=== PATIENT | male | born 1950 | race Caucasian/White ===

== ENCOUNTER 2020-08-11 10:14 | Emergency (ER) | payer BC, OTHER ==
[~2020-08-11] VITALS: Ht 170.2 cm; Wt 65.8 kg
--- NOTE | 2020-08-11 10:25 | NUR ---
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 PATIENT A/OX3, BREATHING EVEN AND UNLABORED, PT STS C/O TOO MUCH PAIN ON LEFT THIGH TO HIP.
[2020-08-11] MEDS ORDERED: MORPHINE SULFATE INJ 2 MG/ML DISP.SYRIN ONE (11:47)
[2020-08-11] MEDS ORDERED: ONDANSETRON HCL/PF 4 MG/2 ML VIAL ONE (11:47)
--- NOTE | 2020-08-11 11:50 | NUR ---
XRAY RESULTED, DR. GLEZ GAVE INSTRUCTIONS TO HAVE THE PATIENT WALK. BUT WHEN PATIENT MOVED THE LEFT HIP, HE SCREAMED IN PAIN. PATIENT UNABLE TO SIT UP OR MOVE THE HIP.
[2020-08-11] MEDS ORDERED: ONDANSETRON HCL/PF 4 MG/2 ML VIAL IV ONE (12:00)
[2020-08-11] MEDS ORDERED: MORPHINE SULFATE INJ 2 MG/ML DISP.SYRIN IV ONE (12:00)
--- NOTE | 2020-08-11 12:00 | NUR ---
PATIENT STS HE HAD THE SURGERY AT [facility].
--- NOTE | 2020-08-11 12:06 | NUR ---
CELLULOID TRIMMER AT BEDSIDE. PATIENT CHANGED INTO A GOWN.
[2020-08-11] MEDS ORDERED: GLIP5TAB13 PO (12:13)
[2020-08-11] MEDS ORDERED: SERT-437 PO (12:13)
[2020-08-11] MEDS ORDERED: SIMV-49 PO (12:13)
[2020-08-11] MEDS ORDERED: ATEN25TA PO (12:13)
[2020-08-11] MEDS ORDERED: FAMO20TA8 PO (12:13)
[2020-08-11] MEDS ORDERED: DOCU-270 PO (12:13)
[2020-08-11] MEDS ORDERED: NPH,100I SQ (12:13)
[2020-08-11] MEDS ORDERED: METF-440 PO (12:18)
[2020-08-11 12:22] LABS: BASOPHILS # (AUTO) 0.1 /CMM (0.0-0.2); BASOPHILS % (AUTO) 0.5 % (0.0-2.0); HEMATOCRIT 39 % (39-51); HEMOGLOBIN 12.8 g/dL (13.5-17.5); LYMPHOCYTES # (AUTO) 2.3 /CMM (0.8-4.8); LYMPHOCYTES % (AUTO) 20.8 % (20.0-44.0); MEAN CORPUSCULAR HGB CONC 33 g/dl (31.0-36.0); MEAN CORPUSCULAR VOLUME 89 fL (80-96); MONOCYTES # (AUTO) 1.1 /CMM (0.1-1.30); MONOCYTES % (AUTO) 9.8 % (2.0-12.0); NEUTROPHILS # (AUTO) 7.4 /CMM (1.8-8.9); NEUTROPHILS % (AUTO) 65.9 % (43.0-81.0); PLATELET COUNT (AUTO) 307 /CMM (150-450); RED BLOOD CELL COUNT(AUTO) 4.41 MIL/uL (4.5-6.0); WHITE BLOOD COUNT (AUTO) 11.3 K/uL (4.3-11.0)
--- NOTE | 2020-08-11 12:24 | NUR ---
COVID SWAB SENT TO LAB.
[2020-08-11 12:33] LABS: CALCIUM, SERUM 9.7 mg/dL (8.5-10.1); CREATININE 1.2 mg/dL (0.6-1.3); POTASSIUM 4.7 mmol/L (3.5-5.1)
[2020-08-11 12:38] LABS: ALBUMIN 3.7 g/dL (3.4-5.0); BILIRUBIN,TOTAL 0.3 mg/dL (0.2-1.0); TOTAL PROTEIN, SERUM 7.6 g/dL (6.4-8.2)
--- NOTE | 2020-08-11 12:43 | NUR ---
CALLED [facility], WAITING FOR CALLBACK.
--- NOTE | 2020-08-11 13:13 | NUR ---
CALLED ERIC FROM THE [facility] FOR PAMELA WEISS.
[2020-08-11] MEDS ORDERED: ACET-907 PO (13:17)
--- NOTE | 2020-08-11 13:25 | NUR ---
RECEIVED RESULT FROM MAIN LAB: RAPID COVID NEGATIVE
--- NOTE | 2020-08-11 13:32 | NUR ---
CALLED [facility] FOR TRANSPORT BACK [facility] WILL CALL US BACK WITH INFO. XIOMARA [phone]
--- NOTE | 2020-08-11 14:06 | NUR ---
KASSIE CALLED DR. COPELAND SPEAKING WITH DR. GLEZ REF # [id number] OK TO GO BACK TO [facility].
--- NOTE | 2020-08-11 14:36 | NUR ---
KASSIE CALLED [facility] [id number] BY NITHIN OLMEDO.
--- NOTE | 2020-08-11 14:45 | NUR ---
PATIENT A/OX4, BREATHING EVEN AND UNLABORED, NO SOB NOTED. RESTING.
--- NOTE | 2020-08-11 14:57 | NUR ---
REPORT GIVEN TO SAMARA VIRGEN.
--- NOTE | 2020-08-11 15:46 | NUR ---
PATIENT A/OX3-4, BREATHING EVEN AND UNLABORED, NO SOB NOTED. PATIENT KEPT COMFORTABLE. REPORT GIVEN TO LAB SUPPORT SERVICE TECH. PAPERWORK PROVIDED WITH COPIES OF XRAY. IV removed. Catheter intact and site benign. Pressure and 4x4 applied to site. No bleeding noted. Patient discharged to facility in stable condition. Written and verbal after care instructions given. Patient verbalizes understanding of instruction.
[2020-08-11 15:48] VITALS: BP 113/65
== END 2020-08-11 15:49 ==
LOC: ER 10:27
DX: S70.02XA Contusion of left hip, initial encounter (principal); W01.0XXA Fall on same level from slipping, tripping and stumbling without subsequent striking against object, initial encounter; Y92.099 Unspecified place in other non-institutional residence as the place of occurrence of the external cause; I10 Essential (primary) hypertension; Z86.73 Personal history of transient ischemic attack (TIA), and cerebral infarction without residual deficits; E11.9 Type 2 diabetes mellitus without complications; Z79.4 Long term (current) use of insulin; Z79.899 Other long term (current) drug therapy; S72.102D Unspecified trochanteric fracture of left femur, subsequent encounter for closed fracture with routine healing; X58.XXXD Exposure to other specified factors, subsequent encounter; Z20.822 Contact with and (suspected) exposure to COVID-19
CPT/HCPCS: 36415; 73503; 73552; 80053; 85025; 87426; 96374; 96375; 99284; C9803 ×2; J2270; J2405; U0003; 73502